=== PATIENT | male | born 1990 | race Caucasian/White ===

== ENCOUNTER 2018-03-23 18:58 | Emergency (ER) | payer OTHER | END 2018-03-23 21:30 | disposition home or self-care (01) | LOC: FTE 18:58 | DX: B37.0 Candidal stomatitis (principal); J06.9 Acute upper respiratory infection, unspecified; H10.9 Unspecified conjunctivitis; F17.210 Nicotine dependence, cigarettes, uncomplicated | CPT/HCPCS: 71046; 87400; 99284-25 ==

== ENCOUNTER 2018-10-19 05:56 | Inpatient (IN) | payer OTHER ==
[2018-10-19 06:42] LABS: ADD MAN DIFF? NO
[2018-10-19 06:44] LABS: WHITE BLOOD COUNT 4.8 10^3/ul (4.8-10.8)
[2018-10-19 06:44] LABS: ABNORMAL IP MESSAGE 1; BASOPHILS % 0.2 % (0.0-2.0); EOSINOPHILS # 0.1 10^3/ul (0.0-0.5); EOSINOPHILS % 2.5 % (0.0-7.0); HEMATOCRIT 38.7 % (42.0-52.0); HEMOGLOBIN 12.3 g/dl (14.0-18.0); LYMPHOCYTES # 0.6 10^3/ul (0.8-2.9); MEAN CORPUSCULAR HEMOGLOBIN 27.3 pg (29.0-33.0); MEAN CORPUSCULAR HGB CONC 31.8 g/dl (32.0-37.0); MEAN CORPUSCULAR VOLUME 85.8 fl (82.0-101.0); MEAN PLATELET VOLUME 10.7 fl (7.4-10.4); MONOCYTE # 0.4 10^3/ul (0.3-0.9); MONOCYTES % 8.6 % (0.0-11.0); NEUTROPHIL # 3.1 10^3/ul (1.6-7.5); NEUTROPHILS % 64.6 % (39.0-77.0); PLATELET COUNT 197 10^3/UL (140-415); POSITIVE DIFF @See below; RED BLOOD COUNT 4.51 10^6/ul (4.70-6.10); RED CELL DISTRIBUTION WIDTH 13.6 % (11.5-14.5)
[2018-10-19 07:04] LABS: ALANINE AMINOTRANSFERASE 47 IU/L (13-69); ALBUMIN 4.1 g/dl (3.3-4.9); ALBUMIN/GLOBULIN RATIO 0.93; ALKALINE PHOSPHATASE 102 IU/L (42-121); ANION GAP 8 (5-13); ASPARTATE AMINO TRANSFERASE 32 IU/L (15-46); BILIRUBIN,INDIRECT 0.5 mg/dl (0-1.1); BILIRUBIN,TOTAL 0.5 mg/dl (0.2-1.3); BLOOD UREA NITROGEN 6 mg/dl (7-20); CALCIUM 10.3 mg/dl (8.4-10.2); CARBON DIOXIDE 29 mmol/L (21-31); CHLORIDE 103 mmol/L (97-110); CREATININE 0.94 mg/dl (0.61-1.24); Estimated GFR > 60 mL/min (>60); GLUCOSE 103 mg/dl (70-220); LIPASE 69 U/L (23-300); POTASSIUM 3.8 mmol/L (3.5-5.1); SODIUM 140 mmol/L (135-144); TOTAL PROTEIN 8.5 g/dl (6.1-8.1)
[2018-10-19] MEDS: SOD CHLORIDE 0.9% 1,000 ML IV ×3 (07:28→17:39)
[2018-10-19] MEDS: morphine 4 MG/ML VIAL IV (07:28)
[2018-10-19] MEDS: PIPER-TAZO 3.375 GM IV (PMX) 100 ML IVPB ×4 (07:39→23:39)
[2018-10-19 08:12] LABS: ADD UMIC YES; UR AMORPHOUS CRYSTAL MODERATE /HPF (NONE SEEN); UR ASCORBIC ACID NEGATIVE (NEGATIVE); UR BILIRUBIN (Dip) NEGATIVE (NEGATIVE); UR BLOOD (Dip) 1+ mg/dL (NEGATIVE); UR CLARITY CLEAR (CLEAR); UR COLOR YELLOW (YELLOW); UR GLUCOSE (Dip) NEGATIVE (NEGATIVE); UR KETONES (Dip) NEGATIVE (NEGATIVE); UR LEUKOCYTE ESTERASE (Dip) NEGATIVE Leu/ul (NEGATIVE); UR MUCUS MANY /HPF (NONE SEEN); UR NITRITE (Dip) NEGATIVE (NEGATIVE); UR RBC 1 /HPF (0-5); UR TOTAL PROTEIN (Dip) 1+ mg/dl (NEGATIVE); UR UROBILINOGEN (Dip) NEGATIVE (NEGATIVE); UR WBC 1 /HPF (0-5)
[2018-10-19] MEDS ORDERED: HYDROCODONE/APAP (5/325) TAB PO ×2 (12:30→22:30)
[2018-10-19] MEDS ORDERED: NACL 0.9% 3 ML SYG IV (12:30)
[2018-10-19] MEDS ORDERED: ONDANSETRON 4 MG INJ IV ×3 (12:30→22:30)
[2018-10-19] MEDS ORDERED: ACETAMINOPHEN 325 MG TAB PO (12:30)
[2018-10-19] MEDS ORDERED: morphine 2 MG INJ IV ×2 (12:30→22:30)
[2018-10-19] MEDS: KETOROLAC 30 MG INJ IV (15:42)
[2018-10-19] MEDS ORDERED: SEVOFLURANE 15 MIN (21:00)
[2018-10-19] MEDS: LIDOCAINE 1%/EPI (1:100,000) (MDV) 20 ML (21:08)
[2018-10-19] MEDS: BUPIVACAINE 0.25% (MPF) 30 ML INJ (21:08)
[2018-10-19] MEDS ORDERED: MIDAZOLAM 1 MG/ML 2 ML INJ (21:14)
[2018-10-19] MEDS ORDERED: SUGAMMADEX SODIUM 200 MG/2 ML VIAL IV (21:54)
[2018-10-19] MEDS ORDERED: ONDANSETRON 4 MG INJ (21:54)
[2018-10-19] MEDS ORDERED: ROCURONIUM 50 MG INJ (21:54)
[2018-10-19] MEDS ORDERED: LIDOCAINE 2% (SDV) 5 ML INJ (21:54)
[2018-10-19] MEDS ORDERED: NEOSTIGMINE 3 MG/3 ML SYRINGE (21:54)
[2018-10-19] MEDS ORDERED: GLYCOPYRROLATE 0.4 MG INJ (21:54)
[2018-10-19] MEDS ORDERED: PROPOFOL 20 ML (21:54)
[2018-10-19] MEDS ORDERED: ROPIVACAINE 0.5 % 30 ML VIAL (21:55)
[2018-10-19] MEDS ORDERED: FENTAnyl 50 MCG/ML VIAL IV (22:30)
[2018-10-19] MEDS ORDERED: KETOROLAC 30 MG INJ IV (22:30)
[2018-10-19] MEDS ORDERED: HYDROmorphONE 1 MG/5 ML IV SYRINGE IV ×2 (22:30)
[2018-10-19] MEDS ORDERED: DIPHENHYDRAMINE 50 MG INJ IV (22:30)
[2018-10-19] MEDS ORDERED: MEPERIDINE 25 MG INJ IV (22:30)
[2018-10-20] MEDS: ACETAMINOPHEN 325 MG TAB PO ×3 (01:30→20:21)
[2018-10-20 05:24] LABS: ADD MAN DIFF? NO
[2018-10-20 05:37] LABS: WHITE BLOOD COUNT 4.1 10^3/ul (4.8-10.8)
[2018-10-20 05:37] LABS: ABNORMAL IP MESSAGE 1; BASOPHILS % 0.5 % (0.0-2.0); EOSINOPHILS % 0.2 % (0.0-7.0); HEMATOCRIT 32.8 % (42.0-52.0); HEMOGLOBIN 10.5 g/dl (14.0-18.0); LYMPHOCYTES # 0.6 10^3/ul (0.8-2.9); LYMPHOCYTES % 13.5 % (15.0-51.0); MEAN CORPUSCULAR VOLUME 84.3 fl (82.0-101.0); MONOCYTE # 0.5 10^3/ul (0.3-0.9); MONOCYTES % 11.3 % (0.0-11.0); NEUTROPHIL # 2.4 10^3/ul (1.6-7.5); PLATELET COUNT 171 10^3/UL (140-415); POSITIVE DIFF @See below; RED BLOOD COUNT 3.89 10^6/ul (4.70-6.10); RED CELL DISTRIBUTION WIDTH 13.6 % (11.5-14.5)
[2018-10-20] MEDS: PIPER-TAZO 3.375 GM IV (PMX) 100 ML IVPB ×3 (05:45→18:07)
[2018-10-20 06:26] LABS: ALANINE AMINOTRANSFERASE 37 IU/L (13-69); ALBUMIN 2.9 g/dl (3.3-4.9); ALBUMIN/GLOBULIN RATIO 0.85; ALKALINE PHOSPHATASE 82 IU/L (42-121); ANION GAP 10 (5-13); ASPARTATE AMINO TRANSFERASE 22 IU/L (15-46); BILIRUBIN,INDIRECT 0.4 mg/dl (0-1.1); BILIRUBIN,TOTAL 0.4 mg/dl (0.2-1.3); BLOOD UREA NITROGEN 7 mg/dl (7-20); CARBON DIOXIDE 23 mmol/L (21-31); CHLORIDE 106 mmol/L (97-110); CREATININE 0.76 mg/dl (0.61-1.24); Estimated GFR > 60 mL/min (>60); GLUCOSE 105 mg/dl (70-220); POTASSIUM 3.1 mmol/L (3.5-5.1); SODIUM 139 mmol/L (135-144); TOTAL PROTEIN 6.3 g/dl (6.1-8.1)
[2018-10-20] MEDS: ENOXAPARIN 40 MG/0.4 ML SYG SC (06:38)
[2018-10-20 06:39] LABS: MAGNESIUM 1.8 mg/dl (1.7-2.5)
[2018-10-20 06:39] LABS: PHOSPHORUS 2.5 mg/dl (2.5-4.9)
[2018-10-20 07:51] LABS: ANISOCYTOSIS 1+ (0-0); BAND NEUTROPHILS #M 0.6 10^3/ul (0.0-0.6); BAND NEUTROPHILS % (M) 16 % (0-4); BURR CELLS 1+ (0-0); GIANT THROMBO% (M) 9 % (0-0); LYMPHOCYTES #M 0.3 10^3/ul (0.8-2.9); LYMPHOCYTES % (M) 9 % (15-51); METAMYELOCYTES %M 1 % (0-0); MICROCYTOSIS 1+ (0-0); MONOCYTE #M 0.4 10^3/ul (0.3-0.9); MONOCYTES % (M) 11 % (0-11); MYELOCYTES % (M) 1 % (0-0); PLATELET ESTIMATE NORMAL; POIKILOCYTOSIS 1+ (0-0); POLYCHROMASIA 2+ (0-0); SEG NEUT #M 2.6 10^3/ul (1.6-7.5); SEGMENTED NEUTROPHILS (M) % 62 % (39-77); SMUDGE%M 6 % (0-0)
[2018-10-20] MEDS: SOD CHLORIDE 0.9% 1,000 ML IV ×3 (08:30→18:06)
[2018-10-20] MEDS: EMTRICITABINE/TENOFOVIR TAB PO (08:43)
[2018-10-20] MEDS: ATAZANAVIR 150 MG CAP PO (08:44)
[2018-10-20] MEDS: RITONAVIR 100 MG CAP PO (08:44)
[2018-10-20 13:42] LABS: LYMPHOCYTE - % CD4 (HELPER) 1 % (30-61); LYMPHOCYTE - %CD8 (SUPPRESSOR) 50 % (12-42); LYMPHOCYTE - ABSOLUTE 667 cells/uL (850-3900); LYMPHOCYTE - ABSOLUTE CD4 <20 cells/uL (490-1740); LYMPHOCYTE - ABSOLUTE CD8 336 cells/uL (180-1170); LYMPHOCYTE - CD4/CD8 RATIO 0.02 (0.86-5.00)
[2018-10-20] MEDS: POTASSIUM CHLORIDE (SR) 20 MEQ TAB PO (15:56)
[2018-10-21] MEDS: PIPER-TAZO 3.375 GM IV (PMX) 100 ML IVPB ×2 (00:23→06:33)
[2018-10-21] MEDS: SOD CHLORIDE 0.9% 1,000 ML IV ×3 (02:28→14:30)
[2018-10-21 05:44] LABS: ADD MAN DIFF? NO
[2018-10-21 05:47] LABS: ABNORMAL IP MESSAGE 1; BASOPHILS % 0.5 % (0.0-2.0); EOSINOPHILS # 0.1 10^3/ul (0.0-0.5); EOSINOPHILS % 1.9 % (0.0-7.0); HEMATOCRIT 32.2 % (42.0-52.0); HEMOGLOBIN 10.3 g/dl (14.0-18.0); LYMPHOCYTES # 0.7 10^3/ul (0.8-2.9); LYMPHOCYTES % 18.1 % (15.0-51.0); MEAN CORPUSCULAR HEMOGLOBIN 27.5 pg (29.0-33.0); MEAN CORPUSCULAR VOLUME 85.9 fl (82.0-101.0); MEAN PLATELET VOLUME 10.8 fl (7.4-10.4); MONOCYTE # 0.4 10^3/ul (0.3-0.9); MONOCYTES % 10.6 % (0.0-11.0); NEUTROPHIL # 2.1 10^3/ul (1.6-7.5); NEUTROPHILS % 55.9 % (39.0-77.0); PLATELET COUNT 174 10^3/UL (140-415); POSITIVE DIFF @See below; RED BLOOD COUNT 3.75 10^6/ul (4.70-6.10); RED CELL DISTRIBUTION WIDTH 13.7 % (11.5-14.5)
[2018-10-21 05:47] LABS: WHITE BLOOD COUNT 3.8 10^3/ul (4.8-10.8)
[2018-10-21 06:17] LABS: MAGNESIUM 2.1 mg/dl (1.7-2.5)
[2018-10-21 06:17] LABS: PHOSPHORUS 2.2 mg/dl (2.5-4.9)
[2018-10-21 06:23] LABS: ALANINE AMINOTRANSFERASE 33 IU/L (13-69); ALBUMIN 2.9 g/dl (3.3-4.9); ALBUMIN/GLOBULIN RATIO 0.85; ALKALINE PHOSPHATASE 84 IU/L (42-121); ANION GAP 7 (5-13); ASPARTATE AMINO TRANSFERASE 23 IU/L (15-46); BILIRUBIN,INDIRECT 0.3 mg/dl (0-1.1); BILIRUBIN,TOTAL 0.3 mg/dl (0.2-1.3); BLOOD UREA NITROGEN 2 mg/dl (7-20); CALCIUM 9.3 mg/dl (8.4-10.2); CARBON DIOXIDE 26 mmol/L (21-31); CHLORIDE 110 mmol/L (97-110); CREATININE 0.75 mg/dl (0.61-1.24); Estimated GFR > 60 mL/min (>60); GLUCOSE 81 mg/dl (70-220); POTASSIUM 3.8 mmol/L (3.5-5.1); SODIUM 143 mmol/L (135-144); TOTAL PROTEIN 6.3 g/dl (6.1-8.1)
[2018-10-21] MEDS: ENOXAPARIN 40 MG/0.4 ML SYG SC (06:35)
[2018-10-21 07:21] LABS: ANISOCYTOSIS 1+ (0-0); BAND NEUTROPHILS #M 0.7 10^3/ul (0.0-0.6); BAND NEUTROPHILS % (M) 20 % (0-4); BURR CELLS 1+ (0-0); EOSINOPHILS % (M) 1 % (0-7); GIANT THROMBO% (M) 7 % (0-0); LYMPHOCYTES #M 0.5 10^3/ul (0.8-2.9); LYMPHOCYTES % (M) 15 % (15-51); MICROCYTOSIS 1+ (0-0); MONOCYTE #M 0.2 10^3/ul (0.3-0.9); MONOCYTES % (M) 7 % (0-11); PLATELET ESTIMATE NORMAL; POIKILOCYTOSIS 1+ (0-0); POLYCHROMASIA 1+ (0-0); PROMYELOCYTES % (M) 2 % (0-0); REACTIVE LYMPHOCYTES #M 0.1 10^3/ul (0.0-0.0); REACTIVE LYMPHOCYTES% (M) 5 % (0-0); SEG NEUT #M 1.9 10^3/ul (1.6-7.5); SEGMENTED NEUTROPHILS (M) % 50 % (39-77); SMUDGE%M 9 % (0-0)
[2018-10-21] MEDS: TRIMETHOPRIM/SULFAMETHOX (SS) TAB PO (12:10)
[2018-10-21] MEDS: FLUCONAZOLE 100 MG TAB PO (12:10)
== END 2018-10-21 16:35 | disposition home or self-care (01) | DRG 342 ==
LOC: 2NE 16:48 → FTE 05:56 → 2NE 16:48
PROC: 0DTJ4ZZ Resection of Appendix, Percutaneous Endoscopic Approach (ICD-10-PCS; principal; 2018-10-19 21:00)
DX: K35.80 Unspecified acute appendicitis (principal); B20 Human immunodeficiency virus [HIV] disease; B37.0 Candidal stomatitis; J45.909 Unspecified asthma, uncomplicated; K21.9 Gastro-esophageal reflux disease without esophagitis; D64.9 Anemia, unspecified; F17.200 Nicotine dependence, unspecified, uncomplicated
CPT/HCPCS: 36415; 74176; 80053; 81001; 83690; 83735; 84100; 85025; 86360; 88304; 96365; 96375; 99285-25

== ENCOUNTER 2018-11-24 16:27 | Emergency (ER) | payer OTHER ==
[2018-11-24] MEDS ORDERED: HYDROCODONE/APAP (10/325) TAB PO (17:30)
[2018-11-24] MEDS: morphine 4 MG/ML VIAL IV (17:32)
[2018-11-24] MEDS: IOHEXOL 300MG/ML 150 ML BTL (18:27)
[2018-11-24] MEDS: SOD CHLORIDE 0.9% 100 ML (18:27)
== END 2018-11-24 20:09 | disposition home or self-care (01) ==
LOC: FTE 20:09
DX: K59.00 Constipation, unspecified (principal); F17.210 Nicotine dependence, cigarettes, uncomplicated; R10.9 Unspecified abdominal pain; Z21 Asymptomatic human immunodeficiency virus [HIV] infection status
CPT/HCPCS: 36415; 74177; 80053; 85025; 85610; 85730; 86850; 86900; 86901; 96374; 99285-25